=== PATIENT | male | born 1960 | race Caucasian/White ===

== ENCOUNTER 2022-06-24 14:41 | Emergency (ER) | payer BC ==
[2022-06-24] MEDS ORDERED: HYDROmorphone 0.5 MG/0.5 ML Syringe IVPUSH ONE ×2 (15:17→17:33)
[2022-06-24] MEDS ORDERED: Acetaminophen/oxyCODONE 325-5 MG Tab PO ONE (16:52)
[2022-06-24] MEDS ORDERED: Ondansetron 4 MG Tab.DIS PO ONE (17:17)
[2022-06-24] MEDS ORDERED: Ketorolac 30 MG/ML SDV IVPUSH ONE ×2 (17:20→17:39)
[2022-06-24] MEDS ORDERED: Ondansetron 4 MG/2 ML SDV IVPUSH ONE (17:21)
== END 2022-06-24 18:25 | disposition home or self-care (01) ==
LOC: JD.ED 14:41
DX: S22.31XA Fracture of one rib, right side, initial encounter for closed fracture (principal); V86.99XA Unspecified occupant of other special all-terrain or other off-road motor vehicle injured in nontraffic accident, initial encounter
CPT/HCPCS: 36415; 71260; 74177; 80053; 81001; 85025; 96374; 96375; 96376; 99284; J1170; J1885; J2405